=== PATIENT | male | born 1950 | race Caucasian/White ===

== ENCOUNTER 2018-08-14 10:32 | Emergency (ER) | payer OTHER, BC ==
--- OUTSIDE RECORDS SUMMARY | 2018-08-14 10:34 | XMS REPORT | Clinical Summary ---
:1950 Author Organization [facility] Address [address] [place] [id number] Care Team Providers Name Role Phone Adal Sanchez DO Primary Care Provider Allergies No Known Allergies Current Medications Prescription Sig. Disp. 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, unspecified vessel or lesion type (HCC) amLODIPine (NORVASC) 5 TAKE ONE 180 tablet 3 Active mg tabletIndications: TABLET BY 8 Essential hypertension MOUTH TWICE DAILY simvastatin (ZOCOR) 40 TAKE ONE 90 tablet 3 Active MG tabletIndications: TABLET BY 8 Hyperlipidemia, MOUTH unspecified NIGHTLY hyperlipidemia type metoprolol tartrate TAKE ONE & 135 tablet 3 Active (LOPRESSOR) 50 mg ONE-HALF 8 tabletIndications: TABLETS BY Essential hypertension MOUTH TWICE DAILY irbesartan (AVAPRO) 300 TAKE ONE 90 tablet 3 Active MG tablet TABLET BY 8 MOUTH ONCE DAILY clopidogrel (PLAVIX) 75 TAKE ONE 90 tablet 3 Active mg tablet TABLET BY 8 MOUTH ONCE DAILY KLOR-CON M20 20 mEq CR TAKE 2 360 tablet 0 Active tablet TABLETS BY 8 MOUTH TWICE DAILY hydroCHLOROthiazide Take 1 90 tablet 3 01/03/20 Discontinued (HYDRODIURIL) 25 MG tablet (25 7 18 tabletIndications: mg total) by Coronary artery disease mouth daily. involving [place] heart with angina pectoris, unspecified vessel or lesion type (HCC) amLODIPine (NORVASC) 5 Take 1 180 tablet 3 01/18/20 Discontinued mg tabletIndications: tablet (5 mg 7 18 Essential hypertension total) by mouth 2 (two) times a day. simvastatin (ZOCOR) 40 Take 1 90 tablet 3 02/16/20 Discontinued MG tabletIndications: tablet (40 7 18 Hyperlipidemia, mg total) by unspecified mouth hyperlipidemia type nightly. metoprolol tartrate Take 1 1/2 135 tablet 3 08/20/20 Discontinued (LOPRESSOR) 50 mg (50mg) BID 7 17 tabletIndications: Essential hypertension irbesartan (AVAPRO) 300 TAKE ONE 90 tablet 3 03/29/20 Discontinued MG tablet TABLET BY 7 18 MOUTH ONCE DAILY potassium chloride Take 2 360 tablet 3 04/10/20 Discontinued (K-DUR) 20 MEQ CR tablet tablets by 7 18 mouth twice a day clopidogrel (PLAVIX) 75 Take 1 90 tablet 3 04/23/20 Discontinued mg tablet tablet (75 7 18 mg total) by mouth daily. metoprolol tartrate Take 1 1/2 135 tablet 3 03/07/20 Discontinued (LOPRESSOR) 50 mg (50mg) BID 7 18 tabletIndications: Essential hypertension KLOR-CON M20 20 mEq CR TAKE TWO 360 tablet 0 07/24/20 Discontinued tablet TABLETS BY 8 18 MOUTH TWICE DAILY Active Problems Problem Noted Date Hypertension 09/29/2017 Hyperlipidemia 09/29/2017 Atherosclerosis of coronary artery 09/29/2017 CAD in [place] artery 03/31/2017 Stented coronary artery 03/31/2017 Sarcoidosis 06/26/2015 Pneumonia 06/26/2015 Encounters Date Type Specialty Care Team Description 07/24/2018 Refill Cardiology German Meeks MD Med Refill 04/23/2018 Refill Cardiology German Meeks MD Med Refill 04/10/2018 Refill Cardiology German Meeks MD Med Refill 03/30/2018 Office Visit Cardiology German Meeks MD CAD in [place] artery (Primary Dx) 03/29/2018 Refill Cardiology German Meeks MD Med Refill 03/07/2018 Refill Cardiology German Meeks MD Med Refill 02/15/2018 Refill Cardiology German Meeks MD Med Refill 01/17/2018 Refill Cardiology German Meeks MD Med Refill 01/02/2018 Refill Cardiology German Meeks MD Med Refill 09/29/2017 Office Visit Cardiology German Meeks MD CAD in [place] artery (Primary Dx); Stented coronary artery 08/20/2017 Refill Cardiology Amado Keller MA Med Refill after 08/13/2017 Family History Medical History Relation Name Comments Cancer Father Heart failure Father Cancer Mother Cancer Sister Relation Name Status Comments Father Mother Sister Alive Social History Tobacco Use Types Packs/Day Years Used Date Former Smoker Cigars Smokeless Tobacco: Never Used Comments: 40 yrs ago Alcohol Use Drinks/Week oz/Week Comments Yes 1 Cans of beer 0.6 a week Sex Assigned at Date Recorded Not on file Last Filed Vital Signs Vital Sign Reading Time Taken Blood Pressure 139/66 03/30/2018 9:35 AM CDT Pulse 45 03/30/2018 9:35 AM CDT Temperature - - Respiratory Rate - - Oxygen Saturation - - Inhaled Oxygen Concentration - - Weight 100 kg (221 lb) 03/30/2018 9:35 AM CDT Height 177.8 cm (5' 10") 03/30/2018 9:35 AM CDT Body Mass Index 31.71 03/30/2018 9:35 AM CDT Plan of Treatment Date Type Specialty Care Team Description 09/28/2018 Office Visit Cardiology German Meeks MD [address] [address] Health Maintenance Due Date Last Done Comments COLON CANCER SCREENING 1998 SHINGRIX VACCINE (#1) 1998 ZOSTER VACCINE 2008 PNEUMOCOCCAL POLYSACCHARIDE VACCINE AGE 65 AND OVER 2013 PNEUMOCOCCAL-13 2013 INFLUENZA VACCINE 05/26/2018 Procedures Procedure Name Priority Date/Time Associated Diagnosis Comments ECG 12-LEAD Routine 03/30/2018 8:40 AM CAD in [place] artery Results for this CDT procedure are in the results section. after 08/13/2017 Results ECG 12 lead (03/30/2018 8:40 AM) Ventricular rate 43 [facility] Atrial rate 43 [facility] AL interval 242 [facility] QRSD interval 106 [facility] QT interval 502 [facility] QTC interval 424 [facility] P axis 1 44 [facility] QRS axis 1 -10 [facility] T wave axis 90 [facility] EKG impression Marked sinus bradycardia with 1st degree AV block-Lateral infarct (cited on or before 03-NOV-2012)-Abnormal ECG-In automated comparison with ECG of 03-NOV-2012 09:20,-AL interval has increased-T wave inversion less evident in Anterior [facility] leads- Performing Organization Address City/State/Zipcode Phone Number [facility] [address] [place] [address] after 08/13/2017 Insurance Payer Benefit Plan / Group Subscriber ID Type Phone Address MEDICARE MEDICARE PART A AND B xxxxxxxxxx Medicare [place], [place] BCBS BCBS CHOICE PPO/[employer] PPO xxxxxxxxxxxx [address] [phone] [id number]
--- NOTE | 2018-08-14 12:00 | RAD REPORT ---
EXAM DESCRIPTION: RAD - Elbow Left 3 View - 08/14/2018 11:23 am CLINICAL HISTORY: Left elbow pain status post trauma FINDINGS: No fracture or dislocation is seen. Soft tissue swelling is seen posteromedially. If the patient continues have symptoms to suggest an occult fracture follow-up x-ray 1 week would be recommended
--- NOTE | 2018-08-14 12:07 | ER ---
Nurse's Notes [facility] Name: Chavo Lanier Age: 67 yrs Sex: Male : 1950 Arrival Date: 08/14/2018 Time: 10:35 Bed 16 Private MD: Diagnosis: Hematoma Left Elbow Presentation: 08/14 10:36 Presenting complaint: Patient states: "I stepped out the door to look at a limb that aj1 fell, and I hit some slime on the sideway and my feet went out from under me. I hit a brick planter on my back and elbow" Swelling noted to left elbow. Denies pain. Denies hitting his head, denies LOC. Care prior to arrival: None. Mechanism of Injury: Fall from standing position. Trauma event details: Injury occurred in the [facility]. 10:36 Acuity: MARY JANE 4 aj1 10:36 Method Of Arrival: Ambulatory aj1 10:38 Transition of care: patient was not received from another setting of care. Onset of aj1 symptoms was August 14, 2018 at 10:00. Risk Assessment: Do you want to hurt yourself or someone else? Patient reports no desire to harm self or others. Initial Sepsis Screen: Does the patient meet any 2 criteria? No. Patient's initial sepsis screen is negative. Does the patient have a suspected source of infection? No. Patient's initial sepsis screen is negative. Triage Assessment: 10:42 General: Appears in no apparent distress. comfortable, Behavior is calm, cooperative, aj1 appropriate for age. Pain: Denies pain. Neuro: Level of Consciousness is awake, alert, obeys commands. Cardiovascular: Patient's skin is warm and dry. Respiratory: Airway is patent Respiratory effort is even, unlabored, Respiratory pattern is regular, symmetrical. Trauma Activation: Not Applicable Physician: ED Physician; Name: ; Notified At: ; Arrived At: Physician: General Surgeon; Name: ; Notified At: ; Arrived At: Physician: Radiology; Name: ; Notified At: ; Arrived At: Physician: Respiratory; Name: ; Notified At: ; Arrived At: Physician: Lab; Name: ; Notified At: ; Arrived At: Historical: - Allergies: 10:41 No Known Allergies; aj1 - Home Meds: 10:41 amlodipine 5 mg tab 1 tab once daily [Active]; aspirin 81 mg Oral TbEC 1 tab once daily aj1 [Active]; clopidogrel 75 mg Oral tab 1 tab once daily [Active]; hydrochlorothiazide 25 mg Oral tab 1 tab once daily [Active]; irbesartan 300 mg Oral tab 1 tab once daily [Active]; Klor-Con 10 10 mEq Oral TbER 2 tabs 2 times per day [Active]; levothyroxine 50 mcg tab 1 tab once daily [Active]; metoprolol tartrate 50 mg Oral tab 1.5 tabs 2 times per day [Active]; simvastatin 40 mg Oral tab 1 tab once daily [Active]; tamsulosin 0.4 mg Oral cp24 1 cap once daily [Active]; - PMHx: 10:41 Hyperlipidemia; Hypertension; Hypothyroidism; aj1 10:42 Myocardial infarction; aj1 - PSHx: 10:46 Heart stents; L eye removal; Cholecystectomy; kidney stones; rb1 - Immunization history:: Flu vaccine is up to date. - Social history:: Smoking status: Patient/guardian denies using tobacco. - Ebola Screening: : Patient denies travel to an Ebola-affected area in the 21 days before illness onset. Screenin:46 Abuse screen: Denies threats or abuse. Nutritional screening: No deficits noted. rb1 Tuberculosis screening: No symptoms or risk factors identified. Fall Risk Fall in past 12 months (25 points). No secondary diagnosis (0 pts). No IV (0 pts). Ambulatory Aid- None/Bed Rest/Nurse Assist (0 pts). Gait- Normal/Bed Rest/Wheelchair (0 pts) Mental Status- Oriented to own ability (0 pts). Total Vargas Fall Scale indicates Low Risk Score (25-44 pts). Fall prevention measures have been instituted. Side Rails Up X 2 Placed close to Nursing Station 1:1 attendant Assigned to Pt. Frequent Obs/Assesments occuring As available Patient and Family Educated on Fall Prevention Program and strategies. Assessment: 10:46 General: Appears in no apparent distress. comfortable, Behavior is calm, cooperative. rb1 Pain: Complains of pain in left elbow Pain currently is 1 out of 10 on a pain scale. Pain began 1 hour ago. Neuro: Level of Consciousness is awake, alert, obeys commands, Oriented to person, place, time, situation. Cardiovascular: Capillary refill < 3 seconds is brisk in bilateral fingers. Respiratory: Airway is patent Respiratory effort is even, unlabored, Respiratory pattern is regular, symmetrical. GI: No signs and/or symptoms were reported involving the gastrointestinal system. : No signs and/or symptoms were reported regarding the genitourinary system. Derm: Bruising that is dark purple, on left elbow. Musculoskeletal: Range of motion: intact in all extremities, Swelling present in left elbow. 11:30 Reassessment: Patient appears in no apparent distress at this time. No changes from rb1 previously documented assessment. 12:30 Reassessment: Patient appears in no apparent distress at this time. Patient and/or rb1 family updated on plan of care and expected duration. Pain level reassessed. Patient is alert, oriented x 3, equal unlabored respirations, skin warm/dry/pink. Patient denies pain at this time. Vital Signs: 10:42 BP 149 / 64; Pulse 48; Resp 18; Temp 97.1(TE); Pulse Ox 97% on R/A; Weight 99.79 kg aj1 (R); Height 5 ft. 10 in. (177.80 cm) (R); Pain 0/10; 11:30 BP 143 / 64; Pulse 45; Resp 17; Pulse Ox 97% on R/A; rb1 12:30 BP 143 / 71; Pulse 45; Resp 16; Pulse Ox 98% on R/A; Pain 0/10; rb1 10:42 Body Mass Index 31.57 (99.79 kg, 177.80 cm) aj1 ED Course: 10:35 Patient arrived in ED. tw3 10:38 Triage completed. aj1 10:42 Arm band placed on Patient placed in an exam room. aj1 10:44 Sammy Singh PA is PHCP. jr8 10:44 Ishmael Restrepo MD is Attending Physician. jr8 10:46 Patient has correct armband on for positive identification. Bed in low position. Call rb1 light in reach. Side rails up X 1. Pulse ox on. NIBP on. 10:56 Katrina Landin, KAJAL is Primary Nurse. rb1 11:23 XRAY Elbow LEFT 3 view In Process Unspecified. EDMS 12:06 Everardo Toledo MD is Referral Physician. jr8 12:37 No provider procedures requiring assistance completed. Patient did not have IV access rb1 during this emergency room visit. Administered Medications: No medications were administered Outcome: 12:06 Discharge ordered by MD. irizarry 12:37 Discharged to home ambulatory, with significant other. rb1 12:37 Condition: stable 12:37 Discharge instructions given to patient, Instructed on discharge instructions, follow up and referral plans. Demonstrated understanding of instructions, follow-up care, Prescriptions given X none 12:38 Patient left the ED. rb1 Signatures: Dispatcher [employer] EDMS Donya Hamilton RN RN aj1 Sammy Singh PA PA jr8 Katrina Landin RN RN rb1 Quique, Suzette tw3 Corrections: (The following items were deleted from the chart) 10:50 10:36 Presenting complaint: Patient states: "I stepped out the door to look a limb that aj1 fell, and I hit some slime on the sideway and my feet went out from under me. I hit a brick planter on my back and elbow" Swelling noted to left elbow. Denies pain. Denies hitting his head, denies LOC aj1
--- NOTE | 2018-08-14 12:08 | EDPHYS ---
Physician Documentation [facility] Name: Chavo Lanier Age: 67 yrs Sex: Male : 1950 Arrival Date: 08/14/2018 Time: 10:35 Bed 16 Private MD: ED Physician Ishmael Restrepo HPI: 08/14 11:10 This 67 yrs old Male presents to ER via Ambulatory with complaints of Fall jr8 Injury. 11:10 Details of fall: The patient fell from an upright position, while standing. Onset: The jr8 symptoms/episode began/occurred acutely, today. Associated injuries: The patient sustained left arm, hematoma. Severity of symptoms: At their worst the symptoms were mild, in the emergency department the symptoms are unchanged. The patient has not experienced similar symptoms in the past. The patient has not recently seen a physician. Patient slipped while outside landing on left elbow. Mild pain with hematoma to elbow now. Denies hitting head or neck. No LOC. Denies any other trauma . Historical: - Allergies: 10:41 No Known Allergies; aj1 - Home Meds: 10:41 amlodipine 5 mg tab 1 tab once daily [Active]; aspirin 81 mg Oral TbEC 1 tab once daily aj1 [Active]; clopidogrel 75 mg Oral tab 1 tab once daily [Active]; hydrochlorothiazide 25 mg Oral tab 1 tab once daily [Active]; irbesartan 300 mg Oral tab 1 tab once daily [Active]; Klor-Con 10 10 mEq Oral TbER 2 tabs 2 times per day [Active]; levothyroxine 50 mcg tab 1 tab once daily [Active]; metoprolol tartrate 50 mg Oral tab 1.5 tabs 2 times per day [Active]; simvastatin 40 mg Oral tab 1 tab once daily [Active]; tamsulosin 0.4 mg Oral cp24 1 cap once daily [Active]; - PMHx: 10:41 Hyperlipidemia; Hypertension; Hypothyroidism; aj1 10:42 Myocardial infarction; aj1 - PSHx: 10:46 Heart stents; L eye removal; Cholecystectomy; kidney stones; rb1 - Immunization history:: Flu vaccine is up to date. - Social history:: Smoking status: Patient/guardian denies using tobacco. - Ebola Screening: : Patient denies travel to an Ebola-affected area in the 21 days before illness onset. ROS: 11:10 Eyes: Negative for injury, pain, redness, and discharge, ENT: Negative for injury, jr8 pain, and discharge, Neck: Negative for injury, pain, and swelling, Cardiovascular: Negative for chest pain, palpitations, and edema, Respiratory: Negative for shortness of breath, cough, wheezing, and pleuritic chest pain, Abdomen/GI: Negative for abdominal pain, nausea, vomiting, diarrhea, and constipation, Back: Negative for injury and pain, Skin: Negative for injury, rash, and discoloration, Neuro: Negative for headache, weakness, numbness, tingling, and seizure. 11:10 MS/extremity: Positive for pain, swelling, of the left elbow. Exam: 11:10 Eyes: Pupils equal round and reactive to light, extra-ocular motions intact. Lids and jr8 lashes normal. Conjunctiva and sclera are non-icteric and not injected. Cornea within normal limits. Periorbital areas with no swelling, redness, or edema. ENT: Nares patent. No nasal discharge, no septal abnormalities noted. Tympanic membranes are normal and external auditory canals are clear. Oropharynx with no redness, swelling, or masses, exudates, or evidence of obstruction, uvula midline. Mucous membranes moist. Neck: Trachea midline, no thyromegaly or masses palpated, and no cervical lymphadenopathy. Supple, full range of motion without nuchal rigidity, or vertebral point tenderness. No Meningismus. Cardiovascular: Regular rate and rhythm with a normal S1 and S2. No gallops, murmurs, or rubs. Normal PMI, no JVD. No pulse deficits. Respiratory: Lungs have equal breath sounds bilaterally, clear to auscultation and percussion. No rales, rhonchi or wheezes noted. No increased work of breathing, no retractions or nasal flaring. Abdomen/GI: Soft, non-tender, with normal bowel sounds. No distension or tympany. No guarding or rebound. No evidence of tenderness throughout. Back: No spinal tenderness. No costovertebral tenderness. Full range of motion. Skin: Warm, dry with normal turgor. Normal color with no rashes, no lesions, and no evidence of cellulitis. Neuro: Awake and alert, GCS 15, oriented to person, place, time, and situation. Cranial nerves II-XII grossly intact. Motor strength 5/5 in all extremities. Sensory grossly intact. Cerebellar exam normal. Normal gait. 11:10 Musculoskeletal/extremity: Extremities: grossly normal except: noted in the left elbow: pain, large hematoma to olecranon process , ROM: intact in all extremities, Circulation is intact in all extremities. Sensation intact. Vital Signs: 10:42 BP 149 / 64; Pulse 48; Resp 18; Temp 97.1(TE); Pulse Ox 97% on R/A; Weight 99.79 kg aj1 (R); Height 5 ft. 10 in. (177.80 cm) (R); Pain 0/10; 11:30 BP 143 / 64; Pulse 45; Resp 17; Pulse Ox 97% on R/A; rb1 12:30 BP 143 / 71; Pulse 45; Resp 16; Pulse Ox 98% on R/A; Pain 0/10; rb1 10:42 Body Mass Index 31.57 (99.79 kg, 177.80 cm) aj1 MDM: 10:44 Patient medically screened. jr8 12:04 Data reviewed: vital signs, nurses notes, radiologic studies, plain films. Data jr8 interpreted: Pulse oximetry: on room air is 97 %. Interpretation: normal. Counseling: I had a detailed discussion with the patient and/or guardian regarding: the historical points, exam findings, and any diagnostic results supporting the discharge/admit diagnosis, radiology results, the need for outpatient follow up, a orthopedic surgeon, to return to the emergency department if symptoms worsen or persist or if there are any questions or concerns that arise at home. ED course: Patient on plavix and aspirin. Potential for hematoma to come back is great. Will pressure dress and ice. Explained this to family and are good with plan. Will f/u in one week for reevaluation of the hematoma . 08/14 10:58 Order name: XRAY Elbow LEFT 3 view; Complete Time: 12:01 jr8 08/14 12:04 Order name: Jose Wrap; Complete Time: 12:08 jr8 Administered Medications: No medications were administered Disposition: 15:23 Co-signature as Attending Physician, Ishmael Restrepo MD I agree with the assessment and kdr plan of care. Disposition: 08/14/18 12:06 Discharged to Home. Impression: Hematoma Left Elbow . - Condition is Stable. - Discharge Instructions: Hematoma. - Medication Reconciliation Form, Thank You Letter, Antibiotic Education, Prescription Opioid Use form. - Follow up: Everardo Toledo MD; When: 1 week; Reason: Recheck today's complaints, Continuance of care, Re-evaluation by your physician. - Problem is new. - Symptoms have improved. Signatures: Dispatcher [employer] EDDonya Call RN RN aj1 Ishmael Restrepo MD MD [facility] Sammy Singh PA PA jr8 Katrina Landin, RN RN rb1 Corrections: (The following items were deleted from the chart) 12:38 12:06 08/14/2018 12:06 Discharged to Home. Impression: Hematoma Left Elbow . Condition rb1 is Stable. Forms are Medication Reconciliation Form, Thank You Letter, Antibiotic Education, Prescription Opioid Use. Follow up: Everardo Toledo; When: 1 week; Reason: Recheck today's complaints, Continuance of care, Re-evaluation by your physician. Problem is new. Symptoms have improved. jr8
[2018-08-14 12:46] VITALS: TEMP 97.1
[2018-08-14 12:49] VITALS: BP 143/71; O2SAT 98
== END 2018-08-14 12:38 | disposition home or self-care (01) ==
LOC: ER 10:32
DX: S50.02XA Contusion of left elbow, initial encounter (principal); W01.0XXA Fall on same level from slipping, tripping and stumbling without subsequent striking against object, initial encounter; Y93.89 Activity, other specified; Y92.89 Other specified places as the place of occurrence of the external cause; Z79.82 Long term (current) use of aspirin; Z95.818 Presence of other cardiac implants and grafts; I10 Essential (primary) hypertension; E03.9 Hypothyroidism, unspecified; E78.5 Hyperlipidemia, unspecified; I25.2 Old myocardial infarction
CPT/HCPCS: 99283

== ENCOUNTER 2019-08-05 08:55 | Emergency (ER) | payer OTHER, BC ==
[2019-08-05] MEDS ORDERED: DERMABOND SKIN ADHESIVE TOP ONE (09:08)
[2019-08-05] MEDS ORDERED: LIDOCAINE 1% 20 ML MDV ONE (09:08)
[2019-08-05] MEDS ORDERED: SMZ./TMP. 800/160 MG TABLET ONE (10:41)
--- NOTE | 2019-08-05 10:48 | EDPHYS ---
Physician Documentation [facility] Name: Chavo Lanier Age: 68 yrs Sex: Male : 1950 Arrival Date: 08/05/2019 Time: 08:56 Bed 7 Private MD: Adal Sanchez ED Physician Kentrell De La Cruz HPI: 08/05 09:28 This 68 yrs old Male presents to ER via Ambulatory with complaints of jmm Laceration To Scalp/Face. 09:28 The patient or guardian reports injury. The complaints affect the right cheek. Onset: jmm The symptoms/episode began/occurred acutely. Associated signs and symptoms: Loss of consciousness: This patient did not experience any loss of consciousness. This is a 68 year old male with a history of HLP, HTN, hypothyroidism, myocardial infarction, that presents to the ED with complaints of laceration to the right cheek. Patient states he accidently hit himself with a sharp pipe in his back yard. Denies LOC, denies nausea or vomiting. . Historical: - Allergies: 09:04 No Known Allergies; iw - PMHx: 09:04 Hyperlipidemia; Hypertension; Hypothyroidism; Myocardial infarction; iw - PSHx: 09:04 Heart stents; L eye removal; Cholecystectomy; kidney stones; iw - Immunization history:: Last tetanus immunization: < 5 years ago. - Social history:: Smoking status: . - Ebola Screening: : Patient negative for fever greater than or equal to 101.5 degrees Fahrenheit, and additional compatible Ebola Virus Disease symptoms Patient denies exposure to infectious person Patient denies travel to an Ebola-affected area in the 21 days before illness onset No symptoms or risks identified at this time. ROS: 09:28 Constitutional: Negative for fever, chills, and weight loss, Cardiovascular: Negative jmm for chest pain, palpitations, and edema, Respiratory: Negative for shortness of breath, cough, wheezing, and pleuritic chest pain. 09:28 Skin: Positive for laceration(s). 09:28 All other systems are negative. Exam: 09:28 Neck: Trachea midline, Supple Chest/axilla: Normal chest wall appearance and motion. jmm Cardiovascular: Regular rate and rhythm. No edema appreciated Respiratory: Normal respirations, no respiratory distress appreciated Abdomen/GI: Non distended, soft 09:28 Constitutional: The patient appears in no acute distress, alert, awake. 09:28 Head/face: 4 cm laceration noted to the right cheek, no active bleeding appreciated. 09:28 Head/face: Exam is negative for obvious evidence of injury or deformity, raccoon eyes. 09:28 Eyes: Extraocular movements: intact throughout. 09:28 Skin: injury, laceration(s). 09:28 Neuro: Orientation: is normal, Mentation: is normal, Memory: is normal. 09:28 Psych: Behavior/mood is pleasant, cooperative. Vital Signs: 09:03 BP 166 / 71; Pulse 89; Resp 16 S; Temp 97.0; Pulse Ox 97% on R/A; iw 10:59 BP 137 / 72; Pulse 41; Resp 16; Pulse Ox 99% ; bp MDM: 09:28 Patient medically screened. william 10:46 Data reviewed: vital signs, nurses notes. Counseling: I had a detailed discussion with william the patient and/or guardian regarding: the historical points, exam findings, and any diagnostic results supporting the discharge/admit diagnosis, the need for outpatient follow up, to return to the emergency department if symptoms worsen or persist or if there are any questions or concerns that arise at home. 10:46 ED course: Patient given wound infection and head injury return precautions. Patient william understood and agrees with the plan of care. . Administered Medications: 10:45 Drug: Bactrim (160 mg-800 mg (DS) 1 tablet Route: PO; bp 11:02 Follow up: Response: No adverse reaction bp Disposition: 08/05/19 10:47 Discharged to Home. Impression: Facial Laceration. - Condition is Stable. - Discharge Instructions: Facial Laceration. - Prescriptions for Bactrim DS 800- 160 mg Oral Tablet - take 1 tablet by ORAL route every 12 hours for 10 days; 20 tablet. - Medication Reconciliation Form, Thank You Letter, Antibiotic Education, Prescription Opioid Use form. - Follow up: Adal Sanchez DO; When: 1 week; Reason: Recheck today's complaints, Continuance of care, Re-evaluation by your physician. Addendum: 08/07/2019 06:52 Co-signature as Attending Physician, Kentrell De La Cruz MD. g s Signatures: Dennis Alvarez PA PA jmm Williams, Irene RN RN iw Kentrell De La Cruz MD MD gs Arturo Hyman RN RN bp Corrections: (The following items were deleted from the chart) 08/05 11:02 10:47 08/05/2019 10:47 Discharged to Home. Impression: Facial Laceration. Condition is bp Stable. Forms are Medication Reconciliation Form, Thank You Letter, Antibiotic Education, Prescription Opioid Use. Follow up: Adal Sanchez; When: 1 week; Reason: Recheck today's complaints, Continuance of care, Re-evaluation by your physician. jmm
--- NOTE | 2019-08-05 10:48 | ER ---
Nurse's Notes [facility] Name: Chavo Lanier Age: 68 yrs Sex: Male : 1950 Arrival Date: 08/05/2019 Time: 08:56 Bed 7 Private MD: Adal Sanchez Diagnosis: Facial Laceration Presentation: 08/05 09:02 Presenting complaint: Patient states: pulling up a steel pipe when it broke free and iw caught him in right cheek, denies LOC. Transition of care: patient was not received from another setting of care. Complicating Factors: There are no complicating factors for this patient. Onset of symptoms was August 05, 2019. Risk Assessment: Do you want to hurt yourself or someone else? Patient reports no desire to harm self or others. Initial Sepsis Screen: Does the patient meet any 2 criteria? No. Patient's initial sepsis screen is negative. Does the patient have a suspected source of infection? No. Patient's initial sepsis screen is negative. Care prior to arrival: None. 09:02 Method Of Arrival: Ambulatory iw 09:02 Acuity: MARY JANE 4 Triage Assessment: 09:05 General: Appears in no apparent distress. comfortable, Behavior is calm, cooperative, bp appropriate for age. Pain: Complains of pain in face. EENT: No deficits noted. Neuro: No deficits noted. Cardiovascular: No deficits noted. Respiratory: No deficits noted. GI: No signs and/or symptoms were reported involving the gastrointestinal system. : No signs and/or symptoms were reported regarding the genitourinary system. Derm: No deficits noted. Musculoskeletal: No deficits noted. Injury Description: Laceration sustained to face is 2.6 to 7.5 cm long, not bleeding, was sustained 30-60 minutes ago. is bleeding a small amount. Historical: - Allergies: 09:04 No Known Allergies; iw - PMHx: 09:04 Hyperlipidemia; Hypertension; Hypothyroidism; Myocardial infarction; iw - PSHx: 09:04 Heart stents; L eye removal; Cholecystectomy; kidney stones; iw - Immunization history:: Last tetanus immunization: < 5 years ago. - Social history:: Smoking status: . - Ebola Screening: : Patient negative for fever greater than or equal to 101.5 degrees Fahrenheit, and additional compatible Ebola Virus Disease symptoms Patient denies exposure to infectious person Patient denies travel to an Ebola-affected area in the 21 days before illness onset No symptoms or risks identified at this time. Screenin:05 Abuse screen: Denies threats or abuse. Denies injuries from another. Nutritional bp screening: No deficits noted. Tuberculosis screening: No symptoms or risk factors identified. Fall Risk None identified. Assessment: 09:05 General: SEE TRIAGE NOTE. Injury Description: Laceration sustained to face is clean, bp 2.6 to 7.5 cm long, not bleeding. 11:00 Reassessment: PT D/C HOME AMBULATORY WITH FAMILY, DX WITH FACIAL LACERATION. bp Vital Signs: 09:03 BP 166 / 71; Pulse 89; Resp 16 S; Temp 97.0; Pulse Ox 97% on R/A; iw 10:59 BP 137 / 72; Pulse 41; Resp 16; Pulse Ox 99% ; bp ED Course: 08:56 Patient arrived in ED. mr 08:56 Adal Sanchez DO is Private Physician. mr 08:58 Arturo Hyman, KAJAL is Primary Nurse. bp 08:59 Dennis Alvarez PA is PHCP. jmm 08:59 Kentrell De La Cruz MD is Attending Physician. jmm 09:03 Triage completed. iw 09:04 Arm band placed on. iw 09:05 Patient has correct armband on for positive identification. Bed in low position. Call bp light in reach. Side rails up X2. Adult w/ patient. 10:30 Assist provider with laceration repair on face that was between 2.6 to 7.5 cm using bp sutures. Set up tray. Performed by Dennis WYATT Dressed with Neosporin, Patient tolerated well. 10:46 Adal Sanchez DO is Referral Physician. jmm 11:01 Patient did not have IV access during this emergency room visit. bp Administered Medications: 10:45 Drug: Bactrim (160 mg-800 mg (DS) 1 tablet Route: PO; bp 11:02 Follow up: Response: No adverse reaction bp Outcome: 10:47 Discharge ordered by . jmm 11:02 Discharged to home ambulatory, with family. bp 11:02 Condition: stable 11:02 Discharge instructions given to patient, Instructed on discharge instructions, follow up and referral plans. medication usage, wound care, Demonstrated understanding of instructions, follow-up care, medications, wound care, Prescriptions given X 1. 11:02 Patient left the ED. bp Signatures: Dennis Alvarez PA PA [facility] mr Stephanie Field, RN RN Arturo Li RN RN bp
[2019-08-05 11:08] VITALS: TEMP 97
[2019-08-05 11:09] VITALS: BP 137/72; O2SAT 99
== END 2019-08-05 11:02 | disposition home or self-care (01) ==
LOC: ER 08:55
PROC: 0JQ10ZZ Repair Face Subcutaneous Tissue and Fascia, Open Approach (ICD-10-PCS; principal; 2019-08-05)
DX: S01.411A Laceration without foreign body of right cheek and temporomandibular area, initial encounter (principal); W22.8XXA Striking against or struck by other objects, initial encounter; Y93.9 Activity, unspecified; Y92.007 Garden or yard of unspecified non-institutional (private) residence as the place of occurrence of the external cause; Z95.818 Presence of other cardiac implants and grafts; I10 Essential (primary) hypertension; I25.2 Old myocardial infarction
CPT/HCPCS: 99283

== ENCOUNTER 2021-11-18 02:03 | Observation (INO) | payer OTHER, BC ==
--- OUTSIDE RECORDS SUMMARY | 2021-11-18 02:06 | XMS REPORT | Continuity of Care Document ---
:1950 Author Organization [facility] t Address [address] [place] [address] Care Team Providers Name Role Phone Pcp, Does Not Have A Primary Care Physician Jony BERTRAND Attending Clinician Destini Crane Attending Clinician Unavailable QAMAR Attending Clinician Unavailable Physician, Primary or Family Admitting Clinician Unavailabl e Payers Payer Name Policy Type Policy Number Effective Date Expiration Date S ource Problems Condition Condition Condition Status Onset Resolution Last Treating Co mments Source Name Details Category Date Date Treatment Clinician Date Cutaneous Cutaneous Disease Active 2012-10 Uni vers cyst cyst 1-18 ity of 00:00: [address] Productive Productive Disease Active U nivers cough cough 4-23 ity of 00:00: [address] Allergies, Adverse Reactions, Alerts This patient has no known allergies or adverse reactions. Social History Social Habit Start Date Stop Date Quantity Comments Source Exposure to Not sure [facility] SARS-CoV-2 (event) Medica l Branch Alcohol intake 2021-01-21 2021-01-21 .14 /d [facility] 00:00:00 00:00:00 [facility] Sex Assigned At [birth year] [facility] 00:00:00 00:00:00 Medical Branch Smoking Status Start Date Stop Date Source Never smoker [facility] Medications Ordered Filled Start Stop Current Ordering Indication Dosage Frequency Signature Comments Components Source Medication Medication Date Date Medication? Clinician (SIG) Name Name diclofenac Yes [id number] 75mg Take 1 [facility] 75 mg EC 2-26 tablet by ity of tablet 00:00: mouth 2 [place] 00 (two) Medical times Branch daily with meals. levothyroxi 2018-10 Yes [id number] 75ug Take 1 [facility] ne 75 mcg 2-16 tablet by ity o f tablet 00:00: mouth [place] 00 every Medical morning. Branch tamsulosin Yes Univers (FLOMAX) 5-02 ity of 0.4 mg 24 00:00: [place] hr capsule 00 Medical Branch KCL Yes Univers (KLOR-CON 4-12 ity of M20) 20 mEq 00:00: [place] tablet 00 Medical Branch amLODIPine Yes Univers (NORVASC) 5 4-11 ity of mg tablet 00:00: [place] 00 Medical Branch aspirin 81 Yes 81mg Take 81 mg U nivers mg tablet 7-21 by mouth ity of 10:04: daily. [place] [address] Medical Branch irbesartan Yes 150mg Take 150 Un tamera (AVAPRO) 7-21 mg by ity of 150 mg 10:04: mouth at [place] [id number] bedtime. Medical Branch clopidogrel Yes 75mg Take 75 mg Univers (PLAVIX) 75 7-21 by mouth ity of mg tablet 10:04: daily. [place] [address] Medical Branch simvastatin Yes 20mg Take 20 mg Univers (ZOCOR) 20 7-21 by mouth ity o f mg tablet 10:04: at [place] [address] bedtime. Medical Branch POTASSIUM Yes 80mg Take 80 mg Un tamera CHLORIDE 7-21 by mouth ity of (KCL-40 10:04: daily. [place] ORAL) Medical Branch metoprolol Yes Univers tartrate 7-06 ity of (LOPRESSOR) 00:00: [place] 50 mg 00 Medical tablet Branch hydrochloro Yes Univer s thiazide 6-29 ity of (ESIDRIX) 00:00: [place] 25 mg 00 Medical tablet Branch Immunizations Ordered Filled Immunization Date Status Comments Sourc e Immunization Name Name SARS-COV-2 COVID-19 2021-02-06 Completed Unive rsity of MODERNA VACCINE 00:00:00 [place] Med ical Branch SARS-COV-2 COVID-19 2021-01-10 Completed Unive rsity of MODERNA VACCINE 00:00:[address] [facility] Influenza High Dose 2020-06-11 Completed Unive rsity of [place] 00:00:00 [facility] Influenza Virus 2018-07-30 Completed Universit y of Vaccine 00:00:00 [facility] Procedures This patient has no known procedures. Encounters Start End Encounter Admission Attending Care Care Encounter Source Date/Time Date/Time Type Type Clinicians Facility Department ID 2021-10-23 2021-10-23 Office HARRISON Borges [id number] [facility] 10:15:00 10:58:26 [id number] Thanh foster [id number] [address] 2020-11-14 2020-11-14 Outpatient RANJITH Crane [facility] [place] [id number] [facility] 12:00:00 12:00:00 Juliocesar [id number] [facility] 2020-09-25 2020-09-25 Outpatient QAMAR [facility] [id number] 00:00:00 00:00:00 ADRIANA [address] Results This patient has no known results.
--- NOTE | 2021-11-18 02:44 | ER ---
Nurse's Notes [facility] Name: Chavo Lanier Age: 71 yrs Sex: Male : 1950 Arrival Date: 11/18/2021 Time: 02:05 Bed 6 Private MD: Diagnosis: Chest pain Presentation: 11/18 02:10 Chief complaint: Patient states: " I was just feeling really weak and like there was tw5 something sitting on my chest" EMS states: " He was out with his dog and when he got back inside he started to feel short of breath and heaviness on his chest. He did have a heart attack in the past. His symptoms have since resolved". Coronavirus screen: Vaccine status: Patient reports receiving the 2nd dose of the covid vaccine. Moderna. Ebola Screen: Patient negative for fever greater than or equal to 101.5 degrees Fahrenheit, and additional compatible Ebola Virus Disease symptoms Patient denies exposure to infectious person. Patient denies travel to an Ebola-affected area in the 21 days before illness onset. Initial Sepsis Screen: Does the patient meet any 2 criteria? No. Patient's initial sepsis screen is negative. Does the patient have a suspected source of infection? No. Patient's initial sepsis screen is negative. Risk Assessment: Do you want to hurt yourself or someone else? Patient reports no desire to harm self or others. Onset of symptoms was November 18, 2021 at 01:30. 02:10 Method Of Arrival: EMS: [facility] tw5 02:10 Acuity: MARY JANE 2 tw5 Triage Assessment: 02:12 General: Appears in no apparent distress. Behavior is calm, cooperative, appropriate tw5 for age. Pain: Denies pain. Historical: - Allergies: 02:12 No Known Allergies; tw5 - Home Meds: 02:14 amlodipine 5 mg tab 1 tab twice daily [Active]; aspirin 81 mg Oral TbEC 1 tab once tw5 daily [Active]; clopidogrel 75 mg Oral tab 1 tab once daily [Active]; amiloride 5 mg oral tab 1 tab once daily [Active]; levothyroxine 50 mcg tab 1 tab once daily [Active]; metoprolol tartrate 25 mg Oral tab 1 tab once daily [Active]; tamsulosin 0.4 mg oral cap 1 cap once daily [Active]; - PMHx: 02:14 Hyperlipidemia; Hypertension; Hypothyroidism; Myocardial infarction; tw5 - Immunization history:: Flu vaccine is up to date. - Social history:: Smoking status: Patient denies any tobacco usage or history of. Screenin:16 Abuse screen: Denies threats or abuse. Denies injuries from another. Nutritional tw5 screening: No deficits noted. Tuberculosis screening: No symptoms or risk factors identified. Fall Risk No fall in past 12 months (0 pts). Assessment: 02:14 Reassessment: No changes from previously documented assessment. Patient and/or family mk updated on plan of care and expected duration. Pain level reassessed. Patient is alert, oriented x 3, equal unlabored respirations, skin warm/dry/pink. General: Appears in no apparent distress. Behavior is calm, cooperative. Pain: Denies pain. Neuro: Level of Consciousness is awake, alert, obeys commands, Oriented to person, place, time, situation, Cardiovascular: Heart tones S1 S2 present Capillary refill < 3 seconds in bilateral fingers toes Patient's skin is warm and dry. Pulses are 2+ in right radial artery, right dorsalis pedis artery, left radial artery and left dorsalis pedis artery Rhythm is sinus rhythm. Respiratory: Airway is patent Trachea midline Respiratory effort is even, unlabored, Respiratory pattern is regular, symmetrical, Breath sounds are clear. GI: Abdomen is flat, non-distended, Bowel sounds present X 4 quads. : No signs and/or symptoms were reported regarding the genitourinary system. Derm: Skin is intact, is healthy with good turgor. Musculoskeletal: Circulation, motion, and sensation intact. Capillary refill < 3 seconds, in bilateral fingers. toes. 03:15 Reassessment: No changes from previously documented assessment. Patient and/or family mk updated on plan of care and expected duration. Pain level reassessed. Patient is alert, oriented x 3, equal unlabored respirations, skin warm/dry/pink. 04:15 Reassessment: No changes from previously documented assessment. Patient and/or family mk updated on plan of care and expected duration. Pain level reassessed. Patient is alert, oriented x 3, equal unlabored respirations, skin warm/dry/pink. 05:15 Reassessment: No changes from previously documented assessment. Patient and/or family mk updated on plan of care and expected duration. Pain level reassessed. Patient is alert, oriented x 3, equal unlabored respirations, skin warm/dry/pink. 06:15 Reassessment: No changes from previously documented assessment. Patient and/or family mk updated on plan of care and expected duration. Pain level reassessed. Patient is alert, oriented x 3, equal unlabored respirations, skin warm/dry/pink. Vital Signs: 02:10 BP 148 / 78; Pulse 61; Resp 18; Temp 97.9; Pulse Ox 99% on R/A; Weight 96.16 kg; Height tw5 5 ft. 10 in. (177.80 cm); Pain 0/10; 02:18 BP 131 / 85; Pulse 82; Resp 16; Pulse Ox 100% on R/A; st1 03:15 BP 128 / 71; Pulse 56; Resp 18; Pulse Ox 99% on R/A; mk 04:11 BP 129 / 67; Pulse 56; Resp 18; Pulse Ox 100% on R/A; mk 05:11 BP 111 / 82; Pulse 48; Resp 16; Pulse Ox 99% on R/A; mk 06:00 BP 141 / 60; Pulse 49; Resp 18; Pulse Ox 100% on R/A; mk 02:10 Body Mass Index 30.42 (96.16 kg, 177.80 cm) tw5 Waves Coma Score: 02:18 Eye Response: spontaneous(4). Verbal Response: oriented(5). Motor Response: obeys st1 commands(6). Total: 15. 03:15 Eye Response: spontaneous(4). Verbal Response: oriented(5). Motor Response: obeys mk commands(6). Total: 15. 04:11 Eye Response: spontaneous(4). Verbal Response: oriented(5). Motor Response: obeys mk commands(6). Total: 15. 05:11 Eye Response: spontaneous(4). Verbal Response: oriented(5). Motor Response: obeys mk commands(6). Total: 15. 06:00 Eye Response: spontaneous(4). Verbal Response: oriented(5). Motor Response: obeys mk commands(6). Total: 15. ED Course: 02:05 Patient arrived in ED. mk 02:05 Jennifer Rasmussen, KAJAL is Primary Nurse. mk 02:06 Surinder Moses MD is Attending Physician. pkl 02:12 Triage completed. tw5 02:12 Arm band placed on. EKG completed in triage. Results shown to MD. tw5 02:15 Patient has correct armband on for positive identification. Placed in gown. Bed in low st1 position. Call light in reach. Side rails up X2. quality assurance monitor body on. Pulse ox on. NIBP on. Verbal reassurance given. 02:16 Maintain EMS IV. Dressing intact. Site clean \\T\\ dry. IV is intact, Flushed right st1 antecubital Converted IV to saline lock on. 02:41 Juan Robertson MD is Hospitalizing Provider. pkl 02:44 Basic Metabolic Panel Sent. mk 02:44 XRAY Chest (1 view) Sent. mk 02:45 CBC with Diff Sent. mk 02:45 LFT's Sent. mk 02:45 Magnesium Sent. mk 02:45 NT PRO-BNP Sent. mk 02:45 PT-INR Sent. mk 02:45 Troponin HS Sent. mk 02:45 Basic Metabolic Panel Sent. mk 02:45 COVID-19 SARS RT PCR (Document "Date of Onset" if Symptomatic) Sent. mk 02:57 COVID-19 SARS RT PCR (Document "Date of Onset" if Symptomatic) Sent. mk 07:34 Arturo Hyman, RN is Primary Nurse. bp Administered Medications: 02:57 Drug: Aspirin Chewable Tablet 324 mg Route: PO; mk Outcome: 02:44 Decision to Hospitalize by Provider. pkl 11:10 Patient left the ED. ph Signatures: Surinder Moses MD MD pk Karlie Saleem RN KAJAL Arturo Hyman RN RN bp Wood, Tiffany tw5 Jennifer Rasmussen RN RN Connie Auguste RN RN st1
--- NOTE | 2021-11-18 02:45 | EDPHYS ---
Physician Documentation [facility] Name: Chavo Lanier Age: 71 yrs Sex: Male : 1950 Arrival Date: 11/18/2021 Time: 02:05 Bed 6 Private MD: ED Physician Surinder Moses HPI: 11/18 02:18 This 71 yrs old Male presents to ER via EMS with unknown complaint. pkl 02:18 The patient or guardian reports chest pain that is located primarily in the substernal pkl area. Onset: just prior to arrival, 1 hour(s) ago. The pain does not radiate. Associated signs and symptoms: Pertinent positives: shortness of breath, feeling weak. The chest pain is described as a pressure. Patient said symptoms similar to when he had heart attack in the past. Historical: - Allergies: 02:12 No Known Allergies; tw5 - Home Meds: 02:14 amlodipine 5 mg tab 1 tab twice daily [Active]; aspirin 81 mg Oral TbEC 1 tab once tw5 daily [Active]; clopidogrel 75 mg Oral tab 1 tab once daily [Active]; amiloride 5 mg oral tab 1 tab once daily [Active]; levothyroxine 50 mcg tab 1 tab once daily [Active]; metoprolol tartrate 25 mg Oral tab 1 tab once daily [Active]; tamsulosin 0.4 mg oral cap 1 cap once daily [Active]; - PMHx: 02:14 Hyperlipidemia; Hypertension; Hypothyroidism; Myocardial infarction; tw5 - Immunization history:: Flu vaccine is up to date. - Social history:: Smoking status: Patient denies any tobacco usage or history of. ROS: 02:18 Eyes: Negative for injury, pain, redness, and discharge, ENT: Negative for injury, pkl pain, and discharge, Neck: Negative for injury, pain, and swelling. 02:18 Cardiovascular: Positive for chest pain. 02:18 Respiratory: Positive for shortness of breath, at rest. 02:18 Abdomen/GI: Negative for abdominal pain, nausea, vomiting, and diarrhea. 02:18 Back: Negative for acute changes. 02:18 : Negative for urinary symptoms. 02:18 MS/extremity: Negative for acute changes. 02:18 Skin: Negative for rash. 02:18 Neuro: Negative for altered mental status, loss of consciousness. Exam: 02:18 Head/Face: Normocephalic, atraumatic. Eyes: Pupils equal round and reactive to light, pkl extra-ocular motions intact. Lids and lashes normal. Conjunctiva and sclera are non-icteric and not injected. Cornea within normal limits. Periorbital areas with no swelling, redness, or edema. ENT: Nares patent. No nasal discharge, no septal abnormalities noted. Tympanic membranes are normal and external auditory canals are clear. Oropharynx with no redness, swelling, or masses, exudates, or evidence of obstruction, uvula midline. Mucous membranes moist. Neck: Trachea midline, no thyromegaly or masses palpated, and no cervical lymphadenopathy. Supple, full range of motion without nuchal rigidity, or vertebral point tenderness. No Meningismus. Chest/axilla: Normal chest wall appearance and motion. Nontender with no deformity. No lesions are appreciated. Cardiovascular: Regular rate and rhythm with a normal S1 and S2. No gallops, murmurs, or rubs. Normal PMI, no JVD. No pulse deficits. Respiratory: Lungs have equal breath sounds bilaterally, clear to auscultation and percussion. No rales, rhonchi or wheezes noted. No increased work of breathing, no retractions or nasal flaring. Abdomen/GI: Soft, non-tender, with normal bowel sounds. No distension or tympany. No guarding or rebound. No evidence of tenderness throughout. Back: No spinal tenderness. No costovertebral tenderness. Full range of motion. Skin: Warm, dry with normal turgor. Normal color with no rashes, no lesions, and no evidence of cellulitis. MS/ Extremity: Pulses equal, no cyanosis. Neurovascular intact. Full, normal range of motion. Neuro: Awake and alert, GCS 15, oriented to person, place, time, and situation. Cranial nerves II-XII grossly intact. Motor strength 5/5 in all extremities. Sensory grossly intact. Cerebellar exam normal. Normal gait. Vital Signs: 02:10 BP 148 / 78; Pulse 61; Resp 18; Temp 97.9; Pulse Ox 99% on R/A; Weight 96.16 kg; Height tw5 5 ft. 10 in. (177.80 cm); Pain 0/10; 02:18 BP 131 / 85; Pulse 82; Resp 16; Pulse Ox 100% on R/A; st1 03:15 BP 128 / 71; Pulse 56; Resp 18; Pulse Ox 99% on R/A; mk 04:11 BP 129 / 67; Pulse 56; Resp 18; Pulse Ox 100% on R/A; mk 05:11 BP 111 / 82; Pulse 48; Resp 16; Pulse Ox 99% on R/A; mk 06:00 BP 141 / 60; Pulse 49; Resp 18; Pulse Ox 100% on R/A; mk 02:10 Body Mass Index 30.42 (96.16 kg, 177.80 cm) tw5 Jass Coma Score: 02:18 Eye Response: spontaneous(4). Verbal Response: oriented(5). Motor Response: obeys st1 commands(6). Total: 15. 03:15 Eye Response: spontaneous(4). Verbal Response: oriented(5). Motor Response: obeys mk commands(6). Total: 15. 04:11 Eye Response: spontaneous(4). Verbal Response: oriented(5). Motor Response: obeys mk commands(6). Total: 15. 05:11 Eye Response: spontaneous(4). Verbal Response: oriented(5). Motor Response: obeys mk commands(6). Total: 15. 06:00 Eye Response: spontaneous(4). Verbal Response: oriented(5). Motor Response: obeys mk commands(6). Total: 15. MDM: 02:06 Patient medically screened. pkl 02:38 Data reviewed: vital signs, nurses notes, lab test result(s), EKG, radiologic studies, pkl plain films. ED course: Talked to Arsen WYATT ) for observation ( Dr. Juan Robertson ). 11/18 02:15 Order name: Basic Metabolic Panel 11/18 02:15 Order name: CBC with Diff; Complete Time: 02:54 11/18 02:15 Order name: LFT's; Complete Time: 03:12 11/18 02:15 Order name: Magnesium; Complete Time: 03:12 11/18 02:15 Order name: NT PRO-BNP; Complete Time: 03:12 11/18 02:15 Order name: PT-INR; Complete Time: 02:54 11/18 02:15 Order name: Troponin HS; Complete Time: 03:12 st1 11/18 02:15 Order name: XRAY Chest (1 view) st1 11/18 02:15 Order name: EKG; Complete Time: 02:16 st11/18 02:15 Order name: Basic Metabolic Panel; Complete Time: 03:12 EDMS 11/18 02:39 Order name: COVID-19 SARS RT PCR (Document "Date of Onset" if Symptomatic); Complete la1 Time: 06:50 11/18 07:24 Order name: Troponin High Sensitivity EDMS 11/18 08:27 Order name: RAD EDMS 11/18 02:15 Order name: Cardiac monitoring; Complete Time: 02:15 st11/18 02:15 Order name: EKG - Nurse/Tech; Complete Time: 02:15 st11/18 02:15 Order name: IV Saline Lock; Complete Time: 02:15 st11/18 02:15 Order name: Labs collected and sent; Complete Time: 02:45 st11/18 02:15 Order name: O2 Per Protocol; Complete Time: 02:15 st11/18 02:15 Order name: O2 Sat Monitoring; Complete Time: 02:15 st Administered Medications: 02:57 Drug: Aspirin Chewable Tablet 324 mg Route: PO; mk Disposition Summary: 11/18/21 02:44 Hospitalization Ordered Hospitalization Status: Observation pkl Provider: Juan Robertson pkl Condition: Stable pkl Problem: new pkl Symptoms: have improved pkl Bed/Room Type: Standard pkl Location: [facility] ER HOLD(11/18/21 04:18) cg Room Assignment: ERHOLD-(11/18/21 04:18) cg Diagnosis - Chest pain pkl Forms: - Medication Reconciliation Form pkl - SBAR form pkl Signatures: Dispatcher [employer] Surinder Lizama MD MD pkl Arsen Diaz, TUBE [employer] MANIFOLD BUILDER-C TUBE AND MANIFOLD BUILDER-Cla1 Veena Montiel, KAJAL RN Radha Ramesh tw5 Jennifer Rasmussen RN RN mk Tingle, Shellie, RN RN st1 Corrections: (The following items were deleted from the chart) 04:18 02:44 Telemetry/MedSurg (observation) pkl cg 04:18 02:44 pkl cg
[2021-11-18] MEDS ORDERED: ASPIRIN 81 MG CHEWABLE TABLET ONE (02:47)
[2021-11-18 02:50] LABS: Absolute Lymphocytes (CBC) 1.1 K/uL (0.7-4.9); Hematocrit 42.3 % (39.6-49.0); Lymphocytes % 15.3 % (15.3-44.8); MPV 8.8 fL (7.6-11.3); RBC Red Blood Cell Count 4.91 M/uL (4.33-5.43)
[2021-11-18 02:51] LABS: Protime INR 1.15
[2021-11-18 03:08] LABS: Albumin 3.4 g/dL (3.4-5.0); Bilirubin Direct 0.2 mg/dL (0-0.2); Bilirubin Total 0.5 mg/dL (0.2-1.0); Magnesium 2.4 mg/dL (1.8-2.4); Potassium 3.6 mmol/L (3.5-5.1); Protein, Total 7.8 g/dL (6.4-8.2); Troponin High Sensitivity 37.7 pg/mL (<58.9)
--- NOTE | 2021-11-18 03:29 | P.HP ---
Certification for Inpatient Patient admitted to: Observation With expected LOS: <2 Midnights Patient will require the following post-hospital care: None Practitioner: I am a practitioner with admitting privileges, knowledge of patient current condition, hospital course, and medical plan of care. Services: Services provided to patient in accordance with Admission requirements found in Title 42 Section 412.3 of the Code of Federal Regulations <Arsen Diaz - Last Filed: 11/18/21 03:26> Patient History Date of Service: 11/18/21 Primary Care Provider: Dr. Marie for Reason for admission: Chest pain History of Present Illness: 71-year-old male with history of hypertension, hyperlipidemia, hypothyroidism, CAD presents emergency department for chest pain. 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 Patient reports his last heart catheterization was approximately 4 years ago with stent placement not sure when his last chest x- ray echocardiogram was. Patient was evaluated here in the emergency department initial troponin high-sensitivity 37.7 which is within normal limits BNP 352 other labs unremarkable Covid test pending EKG without ST changes. ED provider wishes to admit under observation for ACS rule out. - Past Medical/Surgical History -: Hypertension -: Hyperlipidemia -: Hypothyroidism -: CAD -: Cholecystectomy Psychosocial/ Personal History: Patient lives at home with his - Family History Sister -: Cancer - Social History Smoking Status: Never smoker Alcohol use: No CD- Drugs: No Caffeine use: Yes Place of Residence: Home <Arsen Diaz - Last Filed: 11/18/21 03:26> Date of Service: 11/18/21 <Juan Robertson - Last Filed: 11/18/21 16:47> Allergies No Known Allergies Allergy (Unverified 07/11/12 23:34) Review of Systems 10-point ROS is otherwise unremarkable Respiratory: Shortness of Breath Cardiovascular: Chest Pain, As per HPI <Arsen Diaz - Last Filed: 11/18/21 03:26> Physical Examination - Physical Exam General: Alert, In no apparent distress, Oriented x3 HEENT: Atraumatic, PERRLA, Mucous membr. moist/pink, EOMI, Sclerae nonicteric Neck: Supple, 2+ carotid pulse no bruit, No LAD, Without JVD or thyroid abnormality Respiratory: Clear to auscultation bilaterally, Normal air movement Cardiovascular: Regular rate/rhythm, Normal S1 S2 Gastrointestinal: Normal bowel sounds, No tenderness Musculoskeletal: No tenderness Integumentary: No rashes Neurological: Normal gait, Normal speech, Normal strength at 5/5 x4 extr, Normal tone, Normal affect Lymphatics: No axilla or inguinal lymphadenopathy - Studies Laboratory Data (last 24 hrs) 11/18/21 02:26: PT 13.3 H, INR 1.15 11/18/21 02:26: WBC 7.50, Hgb 13.8, Hct 42.3, Plt Count 209 11/18/21 02:26: Sodium 139, Potassium 3.6, BUN 13, Creatinine 1.10, Glucose 119 H, Magnesium 2.4, Total Bilirubin 0.5, AST 21, ALT 26, Alkaline Phosphatase 151 H <Arsen Diaz - Last Filed: 11/18/21 03:26> - Studies Laboratory Data (last 24 hrs) 11/18/21 02:26: PT 13.3 H, INR 1.15 11/18/21 02:26: WBC 7.50, Hgb 13.8, Hct 42.3, Plt Count 209 11/18/21 02:26: Sodium 139, Potassium 3.6, BUN 13, Creatinine 1.10, Glucose 119 H, Magnesium 2.4, Total Bilirubin 0.5, AST 21, ALT 26, Alkaline Phosphatase 151 H <Juan Robertson - Last Filed: 11/18/21 16:47> Assessment and Plan - Plan Assessment: Chest pain rule out ACS history of CAD Hypertension Hyperlipidemia Hypothyroidism BPH Plan: Chest pain rule out ACS history of CAD: Cardiology consulted, monitor on telemetry, trend troponins, home medications aspirin/Plavix, beta-una continued as well as atorvastatin. Last heart catheterization 4 years ago with stent placement to the LAD. Appreciate further input from cardiology. Hypertension: Home medications have been continued Hyperlipidemia: Home medications have been continued Hypothyroidism: Home medications have been continued BPH: Home medications have been continued DVT PPX:Lovenox Code status:FC Discharge Plan: Home Plan to discharge in: 24 Hours - Advance Directives Does patient have a Living Will: No Does patient have a Durable POA for Healthcare: No - Code Status/Comfort Care Code Status Assessed: Yes (FC) Critical Care: No Time Spent Managing Pts Care (In Minutes): 55 <Arsen Diaz - Last Filed: 11/18/21 03:26>
[2021-11-18] MEDS ORDERED: ONDANSETRON 4 MG/2 ML VIAL IV PRN (06:15)
[2021-11-18] MEDS ORDERED: MORPHINE 2 MG/ML SYR IV PRN (06:15)
[2021-11-18] MEDS ORDERED: LEVOTHYROXINE SOD 0.05 MG TABLET PO SCH (06:30)
--- NOTE | 2021-11-18 08:03 | EKG ---
Test Date: 2021-11-18 Test Time: 02:12:23 Chief Design Branch: HELEN MEASUREMENT RESULTS: Intervals: Rate: 62 KS: 224 QRSD: 104 QT: 428 QTc: 434 Henderson: P: 17 KS: 224 QRS: -25 T: 84 INTERPRETIVE STATEMENTS: Sinus rhythm with 1st degree AV block Left ventricular hypertrophy with repolarization abnormality Abnormal ECG Compared to ECG 06/08/2014 14:00:36 First degree AV block now present Left ventricular hypertrophy now present Early repolarization now present Sinus bradycardia no longer present Myocardial infarct finding no longer present Electronically Signed On 11-18-21 08:02:39 PSYCH THERAPIST by Regan Whitley
[2021-11-18] MEDS ORDERED: ASPIRIN EC 81 MG TAB PO ONE (08:25)
[2021-11-18] MEDS ORDERED: AMLODIPINE 5 MG TAB ONE (08:25)
[2021-11-18] MEDS ORDERED: ENOXAPARIN 40 MG/0.4 ML SQ ONE (08:26)
[2021-11-18] MEDS ORDERED: CLOPIDOGREL 75 MG TABLET ONE (08:26)
--- NOTE | 2021-11-18 08:27 | RAD REPORT ---
EXAM DESCRIPTION: RAD - Chest Single View - 11/18/2021 4:07 am CLINICAL HISTORY: CHEST PAIN COMPARISON: CHEST PA AND LAT 2 VIEW dated 01/19/2014; CHEST SINGLE VIEW dated 06/08/2008; CHEST PA AND LAT 2 VIEW dated 01/19/2003 FINDINGS: Lines: None. Lungs: No evidence of edema or pneumonia. Linear scarring in the right mid lung. Pleural: No significant pleural effusions or pneumothorax. Cardiac: The heart size is within normal limits. Bones: No acute fractures. Other: IMPRESSION: No acute cardiopulmonary disease.
[2021-11-18 08:43] VITALS: BP 140/62
[2021-11-18] MEDS ORDERED: ASPIRIN EC 81 MG TAB PO SCH (09:00)
[2021-11-18] MEDS ORDERED: AMILORIDE HCL 5 MG TABLET PO SCH (09:00)
[2021-11-18] MEDS ORDERED: ENOXAPARIN 40 MG/0.4 ML SQ SCH (09:00)
[2021-11-18] MEDS ORDERED: AMLODIPINE 5 MG TAB PO SCH (09:00)
[2021-11-18] MEDS ORDERED: CLOPIDOGREL 75 MG TABLET PO SCH (09:00)
--- NOTE | 2021-11-18 09:39 | CON ---
Date of Consultation: 11/18/[address] patient admitted to Dr. Robertson on 11/18/2021. I saw the patient on 11/18/2021. Reason For Consultation: Unstable angina. History Of Present Illness: Mr. Lanier is a 71-year-old white male. He sees Dr. German Meeks for his cardiology care in [place]. He has a history of coronary artery disease, hypertension, dyslipidemi a, and hypothyroidism. According to him, he had a stress test about 2 years ago. He had seen Dr. Doris ascencio about 6 months ago. He had 3 stents according to him, the last 1 was 18 years ago. Comes in with classic unstable angina symptoms with chest pressure radiating to both arms, shortness of breath, di aphoresis but no nausea or vomiting. Symptoms lasted about 30 minutes after he walked his dog. His EKG was nonspecific. His BNP was elevated slightly. Troponin was negative. He is asymptomatic now. Past Medical History: As stated above. Allergies: NONE. Review of Systems: Negative. Social History: Negative. Family History: Noncontributory. Medications: At home include aspirin, Plavix, amiloride, levothyroxine, Flomax, metoprolol, and Norv asc. Physical Examination: Vital Signs: Stable. Afebrile. HEENT: Negative. Neck: Supple with no bruit. Chest: Clear. Cardiac: Revealed a regular rhythm and rate. No murmurs, gallops, or rubs. Abdomen: Benign. Extremities: Revealed no clubbing, cyanosis, or edema. Diagnostic Data: Stated earlier. Impression And Plan: The patient with history of coronary artery disease, status post stents, the la st of which was 18 years ago, has classic symptoms for unstable angina. He has ruled out for myocard ial infarction. He is bradycardic at a rate of 60. I do not feel comfortable increasing his metopro lol. I would like to continue his home medications. Discharge him to see Dr. Meeks in the very near future for a possible heart catheterization to evaluate his coronary anatomy. I would continue his o ther regimen including aspirin, Norvasc, Plavix, amiloride, Flomax, levothyroxine, metoprolol. Consi krish statin therapy if he can tolerate it. His other problems including hypertension, dyslipidemia, a nd hypothyroidism are stable. Case was discussed with Dr. Robertson. NB/KATHARINA Voice ID: [id number] Report ID: [id number]
[2021-11-18 10:47] VITALS: TEMP 97.4
[2021-11-18] MEDS ORDERED: ATORVASTATIN 40 MG TAB PO SCH (21:00)
[2021-11-18] MEDS ORDERED: TAMSULOSIN 0.4 MG SR CAP PO SCH (21:00)
[2021-11-18] MEDS ORDERED: METOPROLOL XL 25 MG TAB PO SCH (21:00)
[2021-11-18 21:03] VITALS: O2SAT 100
== END 2021-11-18 10:48 | disposition home or self-care (01) ==
LOC: ER 02:03 → ERHOLD 03:54
PROVIDERS: ADMIT Hospitalist; ATTEND Hospitalist
DX: R07.9 Chest pain, unspecified (principal); I10 Essential (primary) hypertension; E78.5 Hyperlipidemia, unspecified; E03.9 Hypothyroidism, unspecified; I25.10 Atherosclerotic heart disease of native coronary artery without angina pectoris; I25.2 Old myocardial infarction; N40.0 Benign prostatic hyperplasia without lower urinary tract symptoms; Z95.5 Presence of coronary angioplasty implant and graft; Z79.02 Long term (current) use of antithrombotics/antiplatelets; Z79.82 Long term (current) use of aspirin; Z79.899 Other long term (current) drug therapy; Z90.49 Acquired absence of other specified parts of digestive tract; Z20.822 Contact with and (suspected) exposure to COVID-19; Z80.9 Family history of malignant neoplasm, unspecified
CPT/HCPCS: 93005; 85025; 80048; 36415; 83735; 85610; 80076; 84484 ×2; 83880; 71045; U0003; 99284; G0378; J1650

== ENCOUNTER 2024-09-18 15:11 | Emergency (ER) | payer OTHER, BC ==
[2024-09-18] MEDS ORDERED: TDAP (DIPHTH,PERTUSS(ACELL),TET VAC) 0.5 ML VIAL IMVAC ONE (15:42)
--- NOTE | 2024-09-18 15:49 | EDPHYS ---
Physician Documentation [facility] Name: Chavo Lanier Age: 73 yrs Sex: Male : 1950 Arrival Date: 09/18/2024 Time: 15:11 Bed 5 Private MD: ED Physician Farhad Anguiano HPI: 09/18 15:31 This 73 yrs old Male presents to ER via Ambulatory with complaints of Laceration To Leg.[facility] 15:31 73-year-old male with a past medical history of hypertension, KS, HLD, and 7 hypothyroidism presents to the ER for a laceration of the left lower leg. The patient reports that he excellently cut himself while using his chainsaw 1 hour [employer]. Bleeding controlled with a light dressing. Patient is requesting a tetanus shot.. Historical: - Allergies: 15:32 No Known Allergies; cm10 - PMHx: 15:32 Hyperlipidemia; Hyperlipidemia; Hypertension; Hypothyroidism; Myocardial infarction; cm10 - Immunization history:: Adult Immunizations up to date, Last tetanus immunization: unknown. - Infectious Disease History:: Denies. - Social history:: Smoking status: unknown. ROS: 15:31 Constitutional: Per HPI 7 Exam: 15:31 Constitutional: This is a well developed, well nourished patient who is awake, alert, jh7 and in no acute distress. Head/Face: Normocephalic, atraumatic. Eyes: Pupils equal round and reactive to light, extra-ocular motions intact. Lids and lashes normal. Conjunctiva and sclera are non-icteric and not injected. Cornea within normal limits. Periorbital areas with no swelling, redness, or edema. Neck: Trachea midline, no thyromegaly or masses palpated, and no cervical lymphadenopathy. Supple, full range of motion without nuchal rigidity, or vertebral point tenderness. No Meningismus. Cardiovascular: Regular rate and rhythm with a normal S1 and S2. No gallops, murmurs, or rubs. Normal PMI, no JVD. No pulse deficits. Respiratory: Lungs have equal breath sounds bilaterally, clear to auscultation and percussion. No rales, rhonchi or wheezes noted. No increased work of breathing, no retractions or nasal flaring. Abdomen/GI: Soft, non-tender, with normal bowel sounds. No distension or tympany. No guarding or rebound. No evidence of tenderness throughout. MS/ Extremity: Pulses equal, no cyanosis. Neurovascular intact. Full, normal range of motion. Neuro: Awake and alert, GCS 15, oriented to person, place, time, and situation. Cranial nerves II-XII grossly intact. Motor strength 5/5 in all extremities. Sensory grossly intact. Cerebellar exam normal. Normal gait. 15:31 Skin: injury, laceration(s), of the left rojas, superficial, Vital Signs: 15:31 BP 139 / 70; Pulse 70; Resp 16; Temp 98.5; Pulse Ox 100% on R/A; Weight 86.18 kg; cm10 Height 5 ft. 10 in. ; Pain 0/10; 15:57 BP 134 / 68; Pulse 71; Resp 16; Temp 98.4; Pulse Ox 100% ; me1 15:31 Body Mass Index 27.26 (86.18 kg, 177.8 cm) cm10 15:31 Pain Scale: Adult cm10 MDM: 15:21 Medical Screening Exam initiated [facility] 15:48 Differential diagnosis: superficial laceration. Data reviewed: vital signs, nurses [facility] notes. Counseling: I had a detailed discussion with the patient and/or guardian regarding the historical points, exam findings, and any diagnostic results supporting the discharge/admit diagnosis, to return to the emergency department if symptoms worsen or persist or if there are any questions or concerns that arise at home. ED course: Wound very superficial, laceration repair not indicated. The wound was cleansed and bandaged. The patient's tetanus was updated and antibiotics were prescribed. Return to the ER with any new or worsening symptoms.. 09/18 15:30 Order name: Wound Care; Complete Time: 15:45 [facility] Administered Medications: 15:46 CANCELLED (bootrix givenn): tetanus-diphtheria toxoidadult 0.5 ml IM once; Provide me1 Vaccine Information Statement (VIS). 15:46 Drug: Boostrix Tdap IM 0.5 ml IM once; as a single dose Route: IM; Site: left deltoid; me1 15:46 Follow up: Response: No adverse reaction me1 Disposition Summary: 09/18/24 15:49 Discharge Ordered Notes: Location: Home [facility] Problem: new [facility] Symptoms: have improved [facility] Condition: Stable [facility] Diagnosis - Laceration without foreign body, left lower leg [facility] Followup: [facility] - With: Private Physician - When: 2 - 3 days - Reason: Recheck today's complaints Discharge Instructions: - Discharge Summary Sheet [facility] - Nonsutured Laceration Care [facility] Forms: - Medication Reconciliation Form [facility] - Antibiotic Education [facility] - Patient Portal Instructions [facility] - Leadership Thank You Letter [facility] Prescriptions: - Cephalexin 500 mg Oral capsule - take 1 capsule ORAL route every 12 hours for 7 days; 14 capsule; Refills: 0, jh7 Product Selection Permitted Signatures: Alyce Lerner, DIAMOND CLEAVER DIAMOND CLEAVER 7 Erica Santana RN RN cm10 Antoinette Swain RN RN me1 Corrections: (The following items were deleted from the chart) 15:46 15:30 Tetanus-Diphtheria Toxoid IM Adult 0.5 ml IM once; Provide Vaccine Information me1 Statement (VIS). ordered. [facility]
--- NOTE | 2024-09-18 15:49 | ER ---
Nurse's Notes [facility] Name: Chavo Lainer Age: 73 yrs Sex: Male : 1950 Arrival Date: 09/18/2024 Time: 15:11 Bed 5 Private MD: Diagnosis: Laceration without foreign body, left lower leg Presentation: 09/18 15:31 Chief complaint: Patient states: Laceration to left lower leg. Pt states that he cut cm10 himself with a chainsaw. Bleeding controlled. Coronavirus screen: Client denies travel out of the [place] in the last 14 days. Ebola Screen: Patient denies travel to an Ebola-affected area in the 21 days before illness onset. No symptoms or risks identified at this time. Complicating Factors: There are no complicating factors for this patient. Initial Sepsis Screen: Does the patient meet any 2 criteria? No. Patient's initial sepsis screen is negative. Does the patient have a suspected source of infection? No. Patient's initial sepsis screen is negative. Risk Assessment: Do you want to hurt yourself or someone else? Patient reports no desire to harm self or others. Onset of symptoms was September 18, 2024. 15:31 Method Of Arrival: Ambulatory cm10 15:31 Acuity: MARY JANE 4 cm10 Triage Assessment: 15:32 General: Appears in no apparent distress. comfortable, Behavior is calm, cooperative. cm10 Neuro: No deficits noted. Level of Consciousness is awake, alert, obeys commands, Oriented to person, place, time, situation, Appropriate for age. Respiratory: No deficits noted. Airway is patent Respiratory effort is even, unlabored, Respiratory pattern is regular, symmetrical. Historical: - Allergies: 15:32 No Known Allergies; cm10 - PMHx: 15:32 Hyperlipidemia; Hyperlipidemia; Hypertension; Hypothyroidism; Myocardial infarction; cm10 - Immunization history:: Adult Immunizations up to date, Last tetanus immunization: unknown. - Infectious Disease History:: Denies. - Social history:: Smoking status: unknown. Screenin:46 [facility] ED Fall Risk Assessment (Adult) History of falling in the last 3 months, me1 including since admission No falls in past 3 months (0 pts) Confusion or Disorientation No (0 pts) Intoxicated or Sedated No (0 pts) Impaired Gait No (0 pts) Mobility Assist Device Used No (0 pt) Altered Elimination No (0 pt) Score/Fall Risk Level 0 - 2 = Low Risk Maintained a safe environment, Provided non-skid footwear, Hourly rounding (assess needs \T\ fall precautionary measures) done. Abuse screen: Denies threats or abuse. Nutritional screening: No deficits noted. Tuberculosis screening: No symptoms or risk factors identified. Assessment: 15:46 General: Appears comfortable, well groomed, well developed, well nourished, Behavior is me1 calm, cooperative, appropriate for age, Reports laceration to left lower leg. Patient cut himself accidentally with a chainsaw. Bleeding controlled. Pain: Complains of pain in left leg Pain does not radiate. Pain currently is 3 out of 10 on a pain scale. Quality of pain is described as tender, Pain began suddenly, Is continuous. Neuro: Level of Consciousness is awake, alert, obeys commands, Oriented to person, place, time, situation, Appropriate for age. Cardiovascular: Patient's skin is warm and dry. Respiratory: Airway is patent Respiratory effort is even, unlabored, Respiratory pattern is regular, symmetrical. GI: No signs and/or symptoms were reported involving the gastrointestinal system. : No signs and/or symptoms were reported regarding the genitourinary system. EENT: No signs and/or symptoms were reported regarding the EENT system. Derm: Wound noted left rojas Wound is laceration to left lower leg. Musculoskeletal: Reports pain in left rojas. Injury Description: Laceration sustained to left rojas is 0.5 to 2.5 cm long, not bleeding, is bleeding a small amount. Vital Signs: 15:31 BP 139 / 70; Pulse 70; Resp 16; Temp 98.5; Pulse Ox 100% on R/A; Weight 86.18 kg; cm10 Height 5 ft. 10 in. ; Pain 0/10; 15:57 BP 134 / 68; Pulse 71; Resp 16; Temp 98.4; Pulse Ox 100% ; me1 15:31 Body Mass Index 27.26 (86.18 kg, 177.8 cm) cm10 15:31 Pain Scale: Adult cm10 ED Course: 15:15 Patient arrived in ED. mg5 15:21 [facility] jh7 15:21 Farhad Anguiano MD is Attending Physician. 7 15:32 Triage completed. cm10 15:33 Arm band placed on left wrist. Patient placed in an exam room, on a stretcher. cm10 15:46 Patient has correct armband on for positive identification. Bed in low position. Call me1 light in reach. Side rails up X2. Provided Education on: POC. Verbalized understanding. . Client placed on continuous cardiac and pulse oximetry monitoring. NIBP monitoring applied. Pulse ox on. NIBP on. 15:46 No provider procedures requiring assistance completed. Patient did not have IV access me1 during this emergency room visit. 15:50 Antoinette Swain, RN is Primary Nurse. me1 15:50 Wound care: to laceration located on left rojas was cleaned with Hibiclens, dressed with pa1 Neosporin, band aid. Administered Medications: 15:46 CANCELLED (bootrix givenn): tetanus-diphtheria toxoidadult 0.5 ml IM once; Provide me1 Vaccine Information Statement (VIS). 15:46 Drug: Boostrix Tdap IM 0.5 ml IM once; as a single dose Route: IM; Site: left deltoid; me1 15:46 Follow up: Response: No adverse reaction me1 Medication: 15:46 Vaccine Information Statement (VIS) provided today. Questions and/or concerns [facility] [place]. VIS edition date: May 31, 2021. Outcome: 15:49 Discharge ordered by . 7 15:57 Discharged to home ambulatory, me1 15:57 Condition: stable 15:57 Discharge instructions given to patient, Instructed on discharge instructions, follow up and referral plans. medication usage, Demonstrated understanding of instructions, follow-up care, medications, Prescriptions given X 1, 15:58 Patient left the ED. me1 Signatures: Alyce Lerner, WELL PULLER WELL PULLER 7 Erica Santana RN RN 10 Antoinette Swain, KAJAL RN pa1 Siomara Jameson mg5
[2024-09-18 18:05] VITALS: O2SAT 100
[2024-09-18 18:07] VITALS: BP 134/68; TEMP 98.4
== END 2024-09-18 15:58 | disposition home or self-care (01) ==
LOC: ER 15:11
DX: S81.812A Laceration without foreign body, left lower leg, initial encounter (principal)
CPT/HCPCS: 96372; 99284

== ENCOUNTER 2024-09-18 20:55 | Emergency (ER) | payer OTHER, BC ==
--- NOTE | 2024-09-18 22:22 | EDPHYS ---
Physician Documentation [facility] Name: Chavo Lanier Age: 73 yrs Sex: Male : 1950 Arrival Date: 09/18/2024 Time: 20:55 Bed 13 Private MD: ED Physician Jass Parisi HPI: 09/19 02:35 This 73 yrs old Male presents to ER via Ambulatory with complaints of Laceration To rt Leg, Pt can not get the bleeding to stop. He was here earlier today. 02:35 Patient was seen in the emergency department earlier today for superficial laceration rt from a chainsaw not amenable to suture repair. Patient states that he had a small amount of bleeding from 1 end of the wound since then that he could not get to stop. Denies other acute complaints at this time, symptoms are moderate severity, no other aggravating alleviating factors.. Historical: - Allergies: 09/18 21:15 No Known Allergies; cm10 - Home Meds: 21:15 clopidogrel 75 mg Oral tab 1 tab once daily [Active]; aspirin 81 mg Oral TbEC 1 tab cm10 once daily [Active]; atorvastatin 40 mg oral tablet 1 tab [Active]; eplerenone 50 mg oral tablet 1 tab [Active]; levothyroxine 88 mcg tablet [Active]; tamsulosin 0.4 mg oral capsule 1 cap every day at bedtime [Active]; amiloride 5 mg Oral tab 1 tab once daily [Active]; Enulose oral 15 mL 2 times per day [Active]; - PMHx: 21:15 Hyperlipidemia; Hypertension; Hypothyroidism; Myocardial infarction; cm10 - Immunization history:: Adult Immunizations up to date. - Infectious Disease History:: Denies. - Social history:: Smoking status: Patient denies any tobacco usage or history of. - Family history:: not pertinent. ROS: 09/19 02:35 Constitutional: Negative for fever, chills, and weight loss, Cardiovascular: Negative rt for chest pain, palpitations, and edema, Respiratory: Negative for shortness of breath, cough, wheezing, and pleuritic chest pain, Abdomen/GI: Negative for abdominal pain, nausea, vomiting, diarrhea, and constipation, MS/Extremity: Negative for injury and deformity, Skin: Positive for laceration(s), Bleeding, Exam: 02:35 Constitutional: This is a well developed, well nourished patient who is awake, alert, rt and in no acute distress. Head/Face: Normocephalic, atraumatic. Chest/axilla: Normal chest wall appearance and motion. Nontender with no deformity. No lesions are appreciated. Cardiovascular: Regular rate and rhythm with a normal S1 and S2. No gallops, murmurs, or rubs. Normal PMI, no JVD. No pulse deficits. Respiratory: Lungs have equal breath sounds bilaterally, clear to auscultation and percussion. No rales, rhonchi or wheezes noted. No increased work of breathing, no retractions or nasal flaring. 02:35 Musculoskeletal/extremity: Superficial laceration noted to the left lower extremity, very minimal capillary ooze from 1 end of this.. Vital Signs: 09/18 21:14 BP 157 / 59; Pulse 64; Resp 18; Temp 98.5(O); Pulse Ox 100% on R/A; Weight 86.18 kg; cm10 Height 5 ft. 10 in. ; Pain 0/10; 22:22 BP 151 / 60; Pulse 53; Resp 18; Temp 98; Pulse Ox 99% ; Pain 0/10; bm8 21:14 Body Mass Index 27.26 (86.18 kg, 177.8 cm) cm10 21:14 Pain Scale: Adult cm10 22:22 Pain Scale: Adult bm8 Jass Coma Score: 22:22 Eye Response: spontaneous(4). Motor Response: obeys commands(6). Verbal Response: bm8 oriented(5). Total: 15. MDM: 22:16 Medical Screening Exam initiated rt 09/19 02:35 Differential diagnosis: Laceration. Data reviewed: vital signs, nurses notes. rt Counseling: I had a detailed discussion with the patient and/or guardian regarding the historical points, exam findings, and any diagnostic results supporting the discharge/admit diagnosis, the need for outpatient follow up, to return to the emergency department if symptoms worsen or persist or if there are any questions or concerns that arise at home. Response to treatment: the patient's symptoms have markedly improved after treatment. ED course: Very minimal bleeding noted, controlled with Surgicel, direct pressure. Stable for outpatient care.. Administered Medications: No medications were administered Disposition Summary: 09/18/24 22:20 Discharge Ordered Notes: Location: Home rt Condition: Stable rt Diagnosis - Laceration to left lower leg rt Followup: rt - With: Private Physician - When: 2 - 3 days - Reason: Discharge Instructions: - Discharge Summary Sheet rt - Nonsutured Laceration Care rt Forms: - Medication Reconciliation Form rt - Antibiotic Education rt - Prescription Opioid Use rt - Patient Portal Instructions rt - Leadership Thank You Letter rt Signatures: Jass Parisi MD MD rt Erica Santana RN RN cm10
--- NOTE | 2024-09-18 22:22 | ER ---
Nurse's Notes [facility] Name: Chavo Lanier Age: 73 yrs Sex: Male : 1950 Arrival Date: 09/18/2024 Time: 20:55 Bed 13 Private MD: Diagnosis: Laceration to left lower leg Presentation: 09/18 21:14 Chief complaint: Patient states: SEEN HERE EARLIER TODAY FOR LACERATION TO LEFT LOWER cm10 LEG CAUSED BY A CHAINSAW. PT STATES THAT THERE IS AN AREA OF THE LACERATION THAT CONTINUES TO BLEED. Coronavirus screen: Client denies travel out of the [place] in the last 14 days. Ebola Screen: Patient denies travel to an Ebola-affected area in the 21 days before illness onset. No symptoms or risks identified at this time. Complicating Factors: There are no complicating factors for this patient. Initial Sepsis Screen: Does the patient meet any 2 criteria? No. Patient's initial sepsis screen is negative. Does the patient have a suspected source of infection? No. Patient's initial sepsis screen is negative. Risk Assessment: Do you want to hurt yourself or someone else? Patient reports no desire to harm self or others. Onset of symptoms was September 18, 2024. 21:14 Method Of Arrival: Ambulatory cm10 21:14 Acuity: MARY JANE 4 cm10 Triage Assessment: 21:18 General: Appears in no apparent distress. comfortable, Behavior is calm, cooperative. cm10 Neuro: No deficits noted. Level of Consciousness is awake, alert, obeys commands, Oriented to person, place, time, situation, Appropriate for age. Respiratory: No deficits noted. Airway is patent Respiratory effort is even, unlabored, Respiratory pattern is regular, symmetrical. Historical: - Allergies: 21:15 No Known Allergies; cm10 - Home Meds: 21:15 clopidogrel 75 mg Oral tab 1 tab once daily [Active]; aspirin 81 mg Oral TbEC 1 tab cm10 once daily [Active]; atorvastatin 40 mg oral tablet 1 tab [Active]; eplerenone 50 mg oral tablet 1 tab [Active]; levothyroxine 88 mcg tablet [Active]; tamsulosin 0.4 mg oral capsule 1 cap every day at bedtime [Active]; amiloride 5 mg Oral tab 1 tab once daily [Active]; Enulose oral 15 mL 2 times per day [Active]; - PMHx: 21:15 Hyperlipidemia; Hypertension; Hypothyroidism; Myocardial infarction; cm10 - Immunization history:: Adult Immunizations up to date. - Infectious Disease History:: Denies. - Social history:: Smoking status: Patient denies any tobacco usage or history of. - Family history:: not pertinent. Screenin:22 [facility] ED Fall Risk Assessment (Adult) History of falling in the last 3 months, bm8 including since admission No falls in past 3 months (0 pts) Confusion or Disorientation No (0 pts) Intoxicated or Sedated No (0 pts) Impaired Gait No (0 pts) Mobility Assist Device Used No (0 pt) Altered Elimination No (0 pt) Score/Fall Risk Level 0 - 2 = Low Risk Oriented to surroundings, Maintained a safe environment, Educated pt \T\ family on fall prevention, incl call for assistance when getting out of bed, Assessed \T\ reinforced patient's understanding of fall precautions, Hourly rounding (assess needs \T\ fall precautionary measures) done, Used ambulatory aids as needed (educated on \T\ assisted with), Used gait belt as appropriate. Abuse screen: Denies threats or abuse. Nutritional screening: No deficits noted. Tuberculosis screening: No symptoms or risk factors identified. Assessment: 22:22 Reassessment: Patient appears in no apparent distress at this time. Patient and/or bm8 family updated on plan of care and expected duration. Pain level reassessed. Patient is alert, oriented x 3, equal unlabored respirations, skin warm/dry/pink. General: Appears in no apparent distress. comfortable, Behavior is calm, cooperative, appropriate for age. Pain: Denies pain. Neuro: No deficits noted. Level of Consciousness is awake, alert, obeys commands, Oriented to person, place, time, situation, Appropriate for age. Cardiovascular: Denies chest pain, Capillary refill < 3 seconds in bilateral fingers Patient's skin is warm and dry. Respiratory: Airway is patent Respiratory effort is even, unlabored, Respiratory pattern is regular, symmetrical. GI: No signs and/or symptoms were reported involving the gastrointestinal system. : No signs and/or symptoms were reported regarding the genitourinary system. EENT: No signs and/or symptoms were reported regarding the EENT system. Derm: Wound noted left rojas Wound is superficial laceration to anterior lower ext. far left side of wound steadily oozing and not clotting. Pt is currently on plavix. Reports laceration that was seen earlier today here and treated but the wound would not stop oozing blood. Musculoskeletal: No deficits noted. No signs and/or symptoms reported regarding the musculoskeletal system. 22:39 Injury Description: Laceration is clean, superficial, 0.5 to 2.5 cm long, oozing. bm8 Vital Signs: 21:14 BP 157 / 59; Pulse 64; Resp 18; Temp 98.5(O); Pulse Ox 100% on R/A; Weight 86.18 kg; cm10 Height 5 ft. 10 in. ; Pain 0/10; 22:22 BP 151 / 60; Pulse 53; Resp 18; Temp 98; Pulse Ox 99% ; Pain 0/10; bm8 21:14 Body Mass Index 27.26 (86.18 kg, 177.8 cm) cm10 21:14 Pain Scale: Adult cm10 22:22 Pain Scale: Adult bm8 Jass Coma Score: 22:22 Eye Response: spontaneous(4). Motor Response: obeys commands(6). Verbal Response: bm8 oriented(5). Total: 15. ED Course: 21:02 Patient arrived in ED. gm2 21:15 Triage completed. cm10 21:18 Arm band placed on left wrist. Patient placed in waiting room. cm10 21:19 Jass Parisi MD is Attending Physician. rt 22:05 Ananth Cat, RN is Primary Nurse. bm8 22:22 Patient has correct armband on for positive identification. Call light in reach. Side bm8 rails up X 1. Client placed on continuous cardiac and pulse oximetry monitoring. NIBP monitoring applied. Pulse ox on. NIBP on. Door closed. Noise minimized. Visitors limited. Warm blanket given. Pillow given. Verbal reassurance given. Head of bed elevated. 22:22 No provider procedures requiring assistance completed. Patient did not have IV access bm8 during this emergency room visit. Patient maintains SpO2 saturation greater than 95% on room air. Wound care: to laceration located on left rojas was cleaned with soap and water, dressed with Surgicel and pressure dressing, secured with coban, Patient tolerated well. 22:38 Provided Education on: post er care. bm8 Administered Medications: No medications were administered Medication: 22:22 VIS not applicable for this client. bm8 Outcome: 22:20 Discharge ordered by . rt 22:38 Discharged to home ambulatory, bm8 22:38 Condition: stable 22:38 Discharge instructions given to patient, family, Instructed on discharge instructions, follow up and referral plans. safety practices, wound care, Demonstrated understanding of instructions, follow-up care, medications, 22:39 Patient left the ED. bm8 Signatures: Jass Parisi MD MD rt Erica Santana, RN RN cm10 Fern Alcantara 2 Ananth Cat, RN RN bm8
[2024-09-19 02:38] VITALS: BP 151/60; TEMP 98; O2SAT 99
== END 2024-09-18 22:39 | disposition home or self-care (01) ==
LOC: ER 20:55
DX: S81.812A Laceration without foreign body, left lower leg, initial encounter (principal)
CPT/HCPCS: 99284